=== PATIENT | male | born 1965 | race African-American/Black ===

== ENCOUNTER 2019-08-22 14:37 | Emergency (ER) | payer MEDICARE, MEDICAID ==
--- NOTE | 2019-08-22 15:17 | ER Document Report ---
ED Medical Screen (RME) - General Chief Complaint: General Weakness Stated Complaint: GENERAL WEAKNESS Time Seen by Provider: 08/22/19 15:09 Mode of Arrival: Medic Information source: Patient Notes: HPI; 54-year-old male presents to the emergency room via EMS complaining of generalized weakness for the past 4 days. States he is having frequent falls at home. Denies any injuries from the falls. Patient is a dialysis patient on peritoneal dialysis. PE: Alert and oriented x3. Mild distress noted. Lungs: Clear to auscultation without rales, rhonchi, wheezes. Heart: Regular rate rhythm without murmurs, rubs, gallops. I have greeted and performed a rapid initial assessment of this patient. A comprehensive ED assessment and evaluation of the patient, analysis of test results and completion of the medical decision making process will be conducted by additional ED providers. I have specifically instructed the patient or family members with the patient to immediately return to any nursing staff should anything change in the patient's condition or with their chief complaint. TRAVEL OUTSIDE OF THE [place] IN LAST 30 DAYS: No - Related Data Allergies/Adverse Reactions: No Known Allergies Allergy (Verified 08/22/19 15:05) Past Medical History - Past Medical History Cardiac Medical History: Reports: Hx Hypercholesterolemia, Hx Hypertension Endocrine Medical History: Reports: Hx Diabetes Mellitus Type 1, Hx Diabetes Mellitus Type 2 - Immunizations Hx Diphtheria, Pertussis, Tetanus Vaccination: Yes - <5 years Physical Exam - Vital signs Vitals: Temp Pulse Resp BP Pulse Ox 99.7 F 96 16 86/44 L 77 L 08/22/19 15:03 08/22/19 15:03 08/22/19 15:03 08/22/19 15:03 08/22/19 15:03 Course - Vital Signs Vital signs: Temp Pulse Resp BP Pulse Ox 99.7 F 96 16 86/44 L 77 L 08/22/19 15:03 08/22/19 15:03 08/22/19 15:03 08/22/19 15:03 08/22/19 15:03
[2019-08-22 16:19] LABS: ABSOLUTE BASOPHILS # (AUTO) 0.1 10^3/uL (0.0-0.2); ABSOLUTE EOSINOPHILS # (AUTO) 0.4 10^3/uL (0.0-0.6); ABSOLUTE NEUT (AUTO) 7.7 10^3/uL (1.7-8.2); BASOPHILS % (AUTO) 0.7 % (0-2); HEMATOCRIT 40.6 % (37.9-51.0); LYMPHOCYTES % (AUTO) 24.6 % (13-45); MEAN CORPUSCULAR HEMOGLOBIN 28.6 pg (27.0-33.4); MEAN CORPUSCULAR HGB CONC 32.1 g/dL (32.0-36.0); MEAN CORPUSCULAR VOLUME 89 fl (80-97); MONOCYTES % (AUTO) 8.2 % (3-13); PLATELET COUNT 361 10^3/uL (150-450); RED BLOOD COUNT 4.55 10^6/uL (4.35-5.55); SEGMENTED NEUTROPHILS % (AUTO) 63.5 % (42-78); TOTAL CELLS COUNTED % (AUTO) 100 %; WHITE BLOOD COUNT 12.1 10^3/uL (4.0-10.5)
[2019-08-22 16:42] LABS: ALBUMIN 4.4 g/dL (3.5-5.0); ALKALINE PHOSPHATASE 106 U/L (38-126); ASPARTATE AMINO TRANSFERASE 18 U/L (17-59); BILIRUBIN,DIRECT 0.6 mg/dL (0.0-0.4); BILIRUBIN,TOTAL 0.8 mg/dL (0.2-1.3); BLOOD UREA NITROGEN 87 mg/dL (7-20); CALCIUM 10.1 mg/dL (8.4-10.2); CREATINE KINASE 181 U/L (55-170); GLUCOSE 210 mg/dL (75-110); POTASSIUM 4.2 mmol/L (3.6-5.0); TOTAL PROTEIN 8.5 g/dL (6.3-8.2)
[2019-08-22 16:48] LABS: CARBON DIOXIDE 22 mmol/L (22-30); CHLORIDE 90 mmol/L (98-107)
[2019-08-22 16:53] LABS: CREATINE KINASE MB 2.34 ng/mL (<4.55); TROPONIN I 0.027 ng/mL
--- NOTE | 2019-08-22 17:06 | RADIOLOGY REPORT (SQ) ---
EXAM DESCRIPTION: CHEST 2 VIEWS IMAGES COMPLETED DATE/TIME: 08/22/2019 4:46 pm REASON FOR STUDY: weakness COMPARISON: PA and lateral views of the chest from 01/20/2014. EXAM PARAMETERS: NUMBER OF VIEWS: Two views. TECHNIQUE: PA and lateral views of the chest were obtained. RADIATION DOSE: NA LIMITATIONS: None. FINDINGS: LUNGS AND PLEURA: There is a crescent of air under the right hemidiaphragm. There is no c onsolidation, sizeable pleural effusion or pneumothorax. MEDIASTINUM AND HILAR STRUCTURES: No mediastinal or hilar contour abnormality. HEART AND VASCULAR STRUCTURES: The cardiac silhouette and pulmonary vasculature are within normal pascual its. BONES: No acute findings. HARDWARE: None in the chest. OTHER: No other finding. IMPRESSION: [place] of air under the right hemidiaphragm. Recommend correlation with supine and up right views of the abdomen to exclude pneumoperitoneum. COMMENT: This report was called to Emergency Department at16:59 on 08/22/2019. TECHNICAL DOCUMENTATION: JOB ID: [id number] 2010 [employer]- All Rights Reserved Reading location - IP/workstation name: [email or web address]
[2019-08-22 17:11] LABS: ANION GAP 26 (5-19)
--- NOTE | 2019-08-22 17:30 | RADIOLOGY REPORT (SQ) ---
EXAM DESCRIPTION: ABDOMEN 2 VIEWS IMAGES COMPLETED DATE/TIME: 08/22/2019 5:17 pm REASON FOR STUDY: pain COMPARISON: None. NUMBER OF VIEWS: Two views. TECHNIQUE: Supine and erect/decubitus radiographic images of the abdomen acquired. LIMITATIONS: None. FINDINGS: FREE AIR: None. No abnormal gas collections. LUNG BASES: Clear. BOWEL GAS PATTERN: Nonobstructive pattern. No dilated loops or air fluid levels. CALCIFICATIONS: Splenic artery calcifications are demonstrated. SOFT TISSUES: No gross mass or suggestion of organomegaly. HARDWARE: None in the abdomen. BONES: No acute fracture. No worrisome bone lesions. OTHER: No other significant finding. IMPRESSION: NO RADIOGRAPHIC EVIDENCE FOR ACUTE ABDOMINAL DISEASE. TECHNICAL DOCUMENTATION: JOB ID: [id number] 2010 [employer]- All Rights Reserved Reading location - IP/workstation name: [email or web address]
--- NOTE | 2019-08-22 17:30 | ER Document Report ---
ED General - General Chief Complaint: Weakness Stated Complaint: GENERAL WEAKNESS Time Seen by Provider: 08/22/19 15:09 Mode of Arrival: Medic Information source: Patient, Emergency Med Personnel, [facility] Records Notes: Patient is a 54-year-old male presenting to the emergency department for weakn ess. When asking the patient he is markedly confused he believes he is 57 when he is actually 54 patient does not answer questions directly however does not appear to be intentionally evasive. Patient apparently had told nursing staff that he is concerned about his peritoneal dialysis that he thinks that his numbers may be off. Patient also reportedly has stopped taking his medications for diabetes because he does not believe that he is diabetic. The remainder of history of present illness is unobtainable secondary to the patient's confusion and review of systems is somewhat questionable. TRAVEL OUTSIDE OF THE [place] IN LAST 30 DAYS: No - HPI Onset: Last week Onset/Duration: Gradual, Persistent Quality of pain: Achy Severity: Mild Pain Level: 1 Associated symptoms: None Exacerbated by: Denies Relieved by: Denies Similar symptoms previously: Yes Recently seen / treated by doctor: Yes - Related Data Allergies/Adverse Reactions: No Known Allergies Allergy (Verified 08/22/19 15:05) Past Medical History - General Information source: Patient - Social History Smoking Status: Never Smoker Chew tobacco use (# tins/day): No Frequency of alcohol use: None Drug Abuse: None Lives with: Family Family History: CAD, DM Patient has suicidal ideation: No Patient has homicidal ideation: No - Past Medical History Cardiac Medical History: Reports: Hx Hypercholesterolemia, Hx Hypertension Endocrine Medical History: Reports: Hx Diabetes Mellitus Type 1, Hx Diabetes Mellitus Type 2 - Immunizations Hx Diphtheria, Pertussis, Tetanus Vaccination: Yes - <5 years Hx Pneumococcal Vaccination: 04/14/12 Review of Systems - Review of Systems -: Yes ROS unobtainable due to patient's medical condition Constitutional: Weakness EENT: No symptoms reported Cardiovascular: No symptoms reported Respiratory: No symptoms reported Gastrointestinal: See HPI Genitourinary: No symptoms reported Male Genitourinary: No symptoms reported Musculoskeletal: No symptoms reported Skin: No symptoms reported Hematologic/Lymphatic: No symptoms reported Neurological/Psychological: No symptoms reported Physical Exam - Vital signs Vitals: Temp Pulse Resp BP Pulse Ox 99.7 F 96 16 86/44 L 77 L 08/22/19 15:03 08/22/19 15:03 08/22/19 15:03 08/22/19 15:03 08/22/19 15:03 - Notes Notes: PHYSICAL EXAMINATION: GENERAL: Well-appearing, well-nourished and in no acute distress. HEAD: Atraumatic, normocephalic. EYES: Right eye is opacified patient states he has cataracts to that eye there is some discharge to the eye, extraocular movements intact, sclera anicteric, conjunctiva are normal. ENT: nares patent, oropharynx clear without exudates. Tacky mucous membranes. NECK: Normal range of motion, supple without lymphadenopathy, no appreciable JVD LUNGS: Lungs clear to auscultation bilaterally and equal. No wheezes rales or rhonchi. HEART: Regular rate and rhythm without murmurs ABDOMEN: Soft, obese nontender, normal bowel sounds. No guarding, no rebound. No masses appreciated. EXTREMITIES: Active full range of motion, no pitting or edema. No cyanosis. 2+ pulses x4 NEUROLOGICAL: Patient demonstrates general confusion but otherwise does follow basic requests. SKIN: Warm, Dry, and intact. Normal turgor, no rashes or lesions noted. Course - Re-evaluation Re-evalutation: 08/23/19 00:15 Patient has been maintained on a [place] [employer] group leader while in emergency department. Patient has been reevaluated multiple times by myself and nursing staff. Eventually we were able to contact the patient's mother and spoke to her several times. She states that the patient has been acting differently over the past 2 to 3 days he has complained of less urination over the past several days. She states that the patient has been seen at [facility] in the past for dialysis related issues. 08/23/19 00:19 Radiologic studies demonstrate free air in the abdomen which may be secondary to the peritoneal dialysis and excessive free fluid likewise from the peritoneal dialysis the liver is enlarged and there is a small right lower lobe infiltrate. With the patient's confusion altered mental status and UTI feel most a ppropriate the patient should be transferred to a higher level facility. Patient was started on IV fluids and a gram of Rocephin. At 2340 I contacted the transfer center at [facility] and requested consultation with either nephrology or the hospitalist for possibility of transfer due to lack of dialysis capabilities at our facility over the weekend. Patient's lactic acid is 1 which is normal and his anion gap is 26 which is obviously elevated lipase of 665 blood glucose level of 210 BUN of 87 creatinine 31.7 last time the patient was seen here his BUN was 29 creatinine was 3.6 patient has been found to have a urinary tract infection on laboratory studies. 08/23/19 00:21 Currently waiting on return phone call from receiving facility. 08/23/19 00:52 I was able to speak with Dr. Chung, hospitalist at receiving facility who agrees with transfer at this time he is asking for broader coverage with antibiotics to include a gram of vancomycin and 3.375 g of Zosyn. No further requests were made and hospital transfer center will contact us when a bed is released. I did speak with the patient in this regard and he at this time seems somewhat more alert and is agreeable with transfer due to necessity. 08/23/19 01:08 I received a call back from the transfer center and there is [facility] which is also accepting patients I spoke with a Dr. Coco Perry who was very accommodating and states that they would be able to accept the patient in the transfer center believes bed availability would be much more expeditious to their facility. Patient is excepted and currently waiting on bed assignment and will be transferred to that facility by [facility]. 08/23/19 02:00 Just spoke with transfer center they say that there are no ambulances available until the morning patient be maintained in the emergency department and followed by nighttime physician until such time that the patient can have transportation secured. Patient is currently stable at this time. - Vital Signs Vital signs: Temp Pulse Resp BP Pulse Ox 99.7 F 96 16 130/81 H 94 08/22/19 15:03 08/22/19 15:03 08/22/19 15:03 08/22/19 21:55 08/23/19 01:00 - Laboratory Result Diagrams: 08/22/19 16:04 08/22/19 16:04 Laboratory results interpreted by me: 08/22/19 08/22/19 08/22/19 16:04 16:04 18:45 WBC 12.1 H Hgb 13.0 L Carbonic Acid ABG pH ABG pCO2 ABG pO2 ABG O2 Saturation Chloride 90 L Anion Gap 26 H BUN 87 H Creatinine 31.74 H Est GFR ( Amer) 2 L Est GFR (MDRD) Non-Af 1 L Glucose 210 H Hemoglobin A1c % Direct Bilirubin 0.6 H Ammonia < 8.7 L Creatine Kinase 181 H Total Protein 8.5 H Lipase Urine Protein Urine Glucose (UA) Urine Blood Ur Leukocyte Esterase 08/22/19 08/22/19 08/22/19 18:45 18:45 22:25 WBC Hgb Carbonic Acid ABG pH ABG pCO2 ABG pO2 ABG O2 Saturation Chloride Anion Gap BUN Creatinine Est GFR ( Amer) Est GFR (MDRD) Non-Af Glucose Hemoglobin A1c % 7.7 H Direct Bilirubin Ammonia Creatine Kinase Total Protein Lipase 665.1 H Urine Protein >=500 H Urine Glucose (UA) 50 H Urine Blood LARGE H Ur Leukocyte Esterase LARGE H 08/22/19 23:59 WBC Hgb Carbonic Acid 1.55 H ABG pH 7.28 L ABG pCO2 51.4 H ABG pO2 73.1 L ABG O2 Saturation 92.7 L Chloride Anion Gap BUN Creatinine Est GFR ( Amer) Est GFR (MDRD) Non-Af Glucose Hemoglobin A1c % Direct Bilirubin Ammonia Creatine Kinase Total Protein Lipase Urine Protein Urine Glucose (UA) Urine Blood Ur Leukocyte Esterase - Diagnostic Test Radiology reviewed: Image reviewed, Reports reviewed - EKG Interpretation by Me EKG shows normal: Sinus rhythm Rate: Normal Rhythm: NSR When compared to previous EKG there are: No significant change Critical Care Note - Critical Care Note Total time excluding time spent on procedures (mins): 60 Comments: Please allow 60 minutes of critical care time spent obtaining history from patient or surrogate, discussions with consultants, development of treatment plan with patient or surrogate, evaluation of patient's response to treatment, examination of patient. This also includes ordering and reviewing laboratory, EKG and / or radiologic studies, performing and reassessing treatments and interventions as well as reviewing previous visits and old charts. This is exclusive of separately billable procedures. Discharge - Discharge Clinical Impression: Noncompliance, Uremia Type I diabetes mellitus Qualifiers: Diabetes mellitus complication status: with other specified complication Qualified Code(s): E10.69 - Type 1 diabetes mellitus with other specified complication Hypotension Qualifiers: Hypotension type: unspecified hypotension type Qualified Code(s): I95.9 - Hypotension, unspecified UTI (urinary tract infection) Qualifiers: Urinary tract infection type: site unspecified Hematuria presence: without hematuria Qualified Code(s): N39.0 - Urinary tract infection, site not specified Dialysis complication Qualifiers: Encounter type: initial encounter Qualified Code(s): T82.9XXA - Unspecified complication of cardiac and vascular prosthetic device, implant and graft, initial encounter Condition: Fair Disposition: [facility]
--- NOTE | 2019-08-22 18:32 | RADIOLOGY REPORT (SQ) ---
EXAM DESCRIPTION: CT HEAD WITHOUT IMAGES COMPLETED DATE/TIME: 08/22/2019 6:20 pm REASON FOR STUDY: ams COMPARISON: 01/20/2014 TECHNIQUE: Axial images acquired through the brain without intravenous contrast. Images reviewed wi th bone, brain and subdural windows. Additional sagittal and coronal reconstructions were generated. Images stored on PACS. All CT scanners at this facility use dose modulation, iterative reconstruction, and/or weight based d osing when appropriate to reduce radiation dose to as low as reasonably achievable (ALARA). [facility]: Dose Right [facility]: CareDose [facility]: Dose Right [facility]: Teradose 4D [facility]: Smart [employer] RADIATION DOSE: CT Rad equipment meets quality standard of care and radiation dose reduction techniq ues were employed. CTDIvol: 53.2 mGy. DLP: 911 mGy-cm. mGy. LIMITATIONS: None. FINDINGS: VENTRICLES: Incidental note is made of normal variant persistent cavum septum pellucidum e t vergae configuration. CEREBRUM: No masses. No hemorrhage. No midline shift. No evidence for acute infarction. Normal gra y/white matter differentiation. No areas of low density in the white matter. CEREBELLUM: No masses. No hemorrhage. No alteration of density. No evidence for acute infarction. EXTRAAXIAL SPACES: No fluid collections. No masses. ORBITS AND GLOBE: No intra- or extraconal masses. Normal contour of globe without masses. CALVARIUM: No fracture. PARANASAL SINUSES: No fluid or mucosal thickening. SOFT TISSUES: No mass or hematoma. OTHER: No other significant finding. IMPRESSION: NORMAL BRAIN CT WITHOUT CONTRAST. EVIDENCE OF ACUTE STROKE: NO. COMMENT: Quality ID # 436: Final reports with documentation of one or more dose reduction techniques (e.g., Automated exposure control, adjustment of the mA and/or kV according to patient size, use of iterative reconstruction technique) TECHNICAL DOCUMENTATION: JOB ID: [id number] 2010 [employer]- All Rights Reserved Reading location - IP/workstation name: [email or web address]
--- NOTE | 2019-08-22 18:37 | EKG REPORT ---
SEVERITY:- OTHERWISE NORMAL ECG - SINUS RHYTHM MINIMAL ST ELEVATION, ANTERIOR LEADS : Confirmed by: Umang Avila MD 22-Aug-2019 18:36:42
[2019-08-22] MEDS ORDERED: NORMAL SALINE 1000 ML 1,000 ML IV ONE (21:46)
--- NOTE | 2019-08-22 22:38 | RADIOLOGY REPORT (SQ) ---
EXAM DESCRIPTION: CT ABDOMEN PELVIS WITHOUT IV CONTRAST COMPLETED DATE/TME: 08/22/2019 21:45 CLINICAL HISTORY: 54 years, Male, free air?? COMPARISON: None. TECHNIQUE: Noncontrast images of the abdomen and pelvis were obtained. Images stored on PACS. All CT scanners at this facility use dose modulation, iterative reconstruction, and/or weight based dosing when appropriate to reduce radiation dose to as low as reasonably achievable (ALARA). [facility]: Dose Right [facility]: CareDose [facility]: Dose Right [facility]: Teradose 4D [facility]: Smart [employer] LIMITATIONS: None. FINDINGS: There is minimal linear atelectasis or scarring within the left lung base. There is mild infiltration within the infrahilar right lower lobe centered around axial image 5, coronal image 50, and sagittal image 41. Incidental arterial calcifications are noted, also involving the coronary arteries. There is a moderate amount of free intraperitoneal air. There is a percutaneous catheter entering the anterior left lower quadrant and terminating in the anterior left pelvis, presumably a peritoneal dialysis catheter. There is a moderate amount of free fluid within the abdomen and pelvis. Liver is enlarged to 22 cm in length and is of normal in CT density. Spleen is normal in size. There are 2 small stones within the lower right renal pelvis/UPJ measuring up to 4 mm, producing mild dilation of the right renal pelvis. Additional nonobstructing renal calculi are also noted measuring 2 mm or less. Further, there are coexistent renal arterial vascular calcifications. There is no hydronephrosis on the left. There are bilateral renal hypodensities measuring up to 2.3 cm on the right and 1.5 cm on the left, likely representing cysts giving an internal Hounsfield densities of 7 and 1, respectively. There is no evidence of bowel obstruction. The appendix is within normal limits. Additional extensive arterial vascular calcifications are noted throughout the abdomen and pelvis as well. There is no abdominal aortic aneurysm. Bone windows reveal moderate degenerative disc disease changes at L4-L5. IMPRESSION: 1. Pneumoperitoneum. There is an apparent peritoneal dialysis catheter in place and free air could be secondary to recent peritoneal dialysis although correlation with the patient's history is recommended. Bowel perforation is not completely excluded. Likewise, moderate free fluid within the abdomen and pelvis could also be from peritoneal dialysis although the amount of fluid identified is greater than what is normally seen status post peritoneal dialysis. 2. Nonspecific hepatomegaly. 3. Mildly dilated right renal pelvis secondary to 2 stacked stones in the lower pelvis/UPJ measuring up to 4 mm. 4. mild right lower lobe infiltration. TECHNICAL DOCUMENTATION: Quality ID # 436: Final reports with documentation of one or more dose reduction techniques (e.g., Automated exposure control, adjustment of the mA and/or kV according to patient size, use of iterative reconstruction technique) copyright 2011 [facility]- All Rights Reserved
[2019-08-22 22:52] LABS: APPEARANCE,URINE CLOUDY; BILIRUBIN,URINE NEGATIVE (NEGATIVE); COLOR,URINE YELLOW; GLUCOSE, URINE 50 mg/dL (NEGATIVE)
[2019-08-22 22:53] LABS: ADD MANUAL MICROSCOPIC YES; KETONES,URINE NEGATIVE (NEGATIVE); LEUKOCYTE ESTERASE,URINE LARGE (NEGATIVE); NITRITE,URINE NEGATIVE (NEGATIVE); PROTEIN,URINE >=500 mg/dL (NEGATIVE); URINE SPECIFIC GRAVITY 1.023; UROBILINOGEN,URINE NEGATIVE mg/dL (<2.0)
[2019-08-22 22:55] LABS: BACTERIA,URINE 1+ /HPF; WBC,URINE 20-30 /HPF
[2019-08-22] MEDS ORDERED: CEFTRIAXONE 1 GM/D5W RTU 1 GM/50 ML RTUPB IV ONE (23:05)
[2019-08-23] MEDS ORDERED: PIPERACILLIN/TAZOBACTAM 3.375 GM VIAL IV ONE (00:50)
[2019-08-23] MEDS ORDERED: VANCOMYCIN HCL INJ 1000 MG VIAL IV ONE (00:51)
[2019-08-23 01:43] LABS: ARTERIAL BLOOD BASE EXCESS -3.5 mmol/L; ARTERIAL BLOOD H2CO3 1.55 mmol/L (1.05-1.35); ARTERIAL BLOOD HCO3 23.6 mmol/L (20-24); ARTERIAL BLOOD O2 SATURATION 92.7 % (94-98); ARTERIAL BLOOD PCO2 51.4 mmHg (35-45); ARTERIAL BLOOD PH 7.28 (7.35-7.45); ARTERIAL BLOOD PO2 73.1 mmHg (80-100); ARTERIAL BLOOD TOTAL CO2 25.2 mmol/L (23-27)
[2019-08-23 01:44] LABS: ARTERIAL BLOOD FIO2 ROOM AIR
[2019-08-23 04:16] VITALS: BP 112/74
--- NOTE | 2019-08-23 04:30 | ER Document Report ---
Doctor's Note Notes: 08/23/19 04:29 This MD notified by nursing that transport is here to take patient to [facility]. This MD went to the room and spoke to the patient about transfer. Patient is awake and alert and appears to be in no acute distress. Patient appears to be stable for transfer. This MD signed the EMTALA form signed Dr. Mosley' signature.
== END 2019-08-23 04:37 | disposition short-term general hospital (02) ==
LOC: ER 14:37
DX: Z03.818 Encounter for observation for suspected exposure to other biological agents ruled out (principal); N39.0 Urinary tract infection, site not specified; E11.9 Type 2 diabetes mellitus without complications; T50.906A Underdosing of unspecified drugs, medicaments and biological substances, initial encounter; Z91.128 Patient's intentional underdosing of medication regimen for other reason; Z91.14 Patient's other noncompliance with medication regimen; Z99.2 Dependence on renal dialysis; N19 Unspecified kidney failure; R41.0 Disorientation, unspecified; R16.0 Hepatomegaly, not elsewhere classified; R91.8 Other nonspecific abnormal finding of lung field; N20.1 Calculus of ureter; R29.6 Repeated falls
CPT/HCPCS: 93005; 99291; 96361; 96365; 96366; 96367; 96368; 36415; 87040; 82553; 82010; 80307; 82140; 82803; 82550; 83605; 83690; 85025; 80053; 81001; 84484; 83036; 74019; 71046; 70450; 74176; 93010; U0003; J7030; J3370; J0696; J2543; C9803; 87635

== ENCOUNTER 2019-09-10 15:44 | Emergency (ER) | payer MEDICARE, MEDICAID ==
[2019-09-10] MEDS ORDERED: NORMAL SALINE 500 ML IV ONE (16:50)
[2019-09-10] MEDS ORDERED: CEFTRIAXONE INJ 1000 MG VIAL IV ONE (16:53)
[2019-09-10] MEDS ORDERED: AZITHROMYCIN INJ 500 MG VIAL IV ONE ×2 (16:54→19:30)
--- NOTE | 2019-09-10 16:54 | ER Document Report ---
ED General - General Chief Complaint: General Weakness Stated Complaint: WEAKNESS Time Seen by Provider: 09/10/19 16:47 Mode of Arrival: Ambulatory Information source: Patient Notes: 09/10/19 15:45 (created 09/10/19 15:59) - ED Nursing Note by SONALI HUGO Num: [id number] : 1965 Patient Age: 54 Pt to ED via EMS stretcher. Pt stands and moves to bed with use of cane. Pt c/o weakness/nausea x3 days. Pt reports a productive cough with "greyish" phlegm. Pt in NAD. Pt was at [facility] for peritonitis approximately 1-2 weeks ago. Currently a peritoneal home dialysis pt. Pt states he was unable to complete full dialysis treatment last night due to nausea. EMS admin Zofran 4 mg ODT. EMS states lactate is 0.9 with a BGL of 243. Pt denies pain/SOB. VS obtained. Will CTM. my notes 54-year-old black male arrives with chief complaint of having weakness for 3 days with esparza productive cough as well. Patient reports he has had pneumonia many years ago. He denies any hemoptysis but does admit to fevers and chills. Also patient denies any trauma. He denies any abdominal pain back pain extremity pain skin lesions insect bites tick bites animal bites human bites coronavirus exposure but was here in the hospital around 2 weeks ago for perito nitis. TRAVEL OUTSIDE OF THE [place] IN LAST 30 DAYS: No - HPI Onset: This morning - Related Data Allergies/Adverse Reactions: No Known Allergies Allergy (Verified 09/10/19 16:05) Home Medications: Carvedilol, Potassium Chloride, Lisinopril, Bumetanide, Renaplex, Meclizine, Levothyroxine Past Medical History - Social History Smoking Status: Never Smoker Frequency of alcohol use: None Drug Abuse: None Family History: CAD, DM - Past Medical History Cardiac Medical History: Reports: Hx Hypercholesterolemia, Hx Hypertension Endocrine Medical History: Reports: Hx Diabetes Mellitus Type 1, Hx Diabetes Mellitus Type 2 - Immunizations Hx Diphtheria, Pertussis, Tetanus Vaccination: Yes - <5 years Hx Pneumococcal Vaccination: 04/14/12 Physical Exam - Vital signs Vitals: Temp 99 F 09/10/19 15:44 Course - Vital Signs Vital signs: Temp Pulse Resp BP Pulse Ox 99 F 99 20 99/55 L 100 09/10/19 15:55 09/10/19 15:55 09/10/19 15:55 09/10/19 15:55 09/10/19 15:55 - Laboratory Result Diagrams: 09/10/19 17:20 Laboratory results interpreted by me: 09/10/19 17:20 Hgb 12.6 L Discharge - Discharge Clinical Impression: URI (upper respiratory infection) Qualifiers: URI type: unspecified URI Qualified Code(s): J06.9 - Acute upper respiratory infection, unspecified Condition: Good Disposition: HOME, SELF-CARE Additional Instructions: follow with personal doctor and return to ER as needed; dispense as directed encourage fluids Prescriptions: Benzonatate [Tessalon Perles 100 mg Capsule] 100 mg PO BID #20 capsule Azithromycin [Zithromax 250 mg Tablet] 250 mg PO ASDIR PRN #6 tablet PRN Reason:
[2019-09-10 17:52] LABS: ABSOLUTE EOSINOPHILS # (AUTO) 0.3 10^3/uL (0.0-0.6); ABSOLUTE LYMPHOCYTES (AUTO) 1.7 10^3/uL (0.5-4.7); ABSOLUTE MONOCYTES (AUTO) 0.7 10^3/uL (0.1-1.4); ABSOLUTE NEUT (AUTO) 5.8 10^3/uL (1.7-8.2); BASOPHILS % (AUTO) 0.4 % (0-2); EOSINOPHILS % (AUTO) 3.3 % (0-6); HEMATOCRIT 38.8 % (37.9-51.0); HEMOGLOBIN 12.6 g/dL (13.5-17.0); LYMPHOCYTES % (AUTO) 20.3 % (13-45); MEAN CORPUSCULAR HEMOGLOBIN 28.3 pg (27.0-33.4); MEAN CORPUSCULAR HGB CONC 32.4 g/dL (32.0-36.0); MEAN CORPUSCULAR VOLUME 87 fl (80-97); MONOCYTES % (AUTO) 7.9 % (3-13); PLATELET COUNT 293 10^3/uL (150-450); RED BLOOD COUNT 4.44 10^6/uL (4.35-5.55); RED CELL DISTRIBUTION WIDTH 13.7 % (11.5-14.0); SEGMENTED NEUTROPHILS % (AUTO) 68.1 % (42-78); TOTAL CELLS COUNTED % (AUTO) 100 %; WHITE BLOOD COUNT 8.5 10^3/uL (4.0-10.5)
--- NOTE | 2019-09-10 19:13 | RADIOLOGY REPORT (SQ) ---
EXAM DESCRIPTION: CHEST SINGLE VIEW IMAGES COMPLETED DATE/TIME: 09/10/2019 6:57 pm REASON FOR STUDY: cough COMPARISON: 08/22/2019 NUMBER OF VIEWS: One view. TECHNIQUE: Single frontal radiographic view of the chest acquired. LIMITATIONS: None. FINDINGS: LUNGS AND PLEURA: No opacities, masses or pneumothorax. No pleural effusion. MEDIASTINUM AND HILAR STRUCTURES: No masses. Contour normal. HEART AND VASCULAR STRUCTURES: Heart normal in size. Normal vasculature. BONES: No acute findings. HARDWARE: None in the chest. OTHER: No other significant finding. IMPRESSION: NO SIGNIFICANT RADIOGRAPHIC FINDING IN THE CHEST. TECHNICAL DOCUMENTATION: JOB ID: [id number] 2010 [employer]- All Rights Reserved Reading location - IP/workstation name: [email or web address]
--- NOTE | 2019-09-10 20:07 | EKG REPORT ---
SEVERITY:- OTHERWISE NORMAL ECG - SINUS RHYTHM MINIMAL ST ELEVATION, ANTERIOR LEADS : Confirmed by: Gertrude Brown MD 10-Sep-2019 20:06:26
[2019-09-10 20:55] VITALS: BP 141/79
== END 2019-09-10 20:35 | disposition home or self-care (01) ==
LOC: ER 15:44
DX: J06.9 Acute upper respiratory infection, unspecified (principal); R53.1 Weakness; R11.0 Nausea; Z20.828 Contact with and (suspected) exposure to other viral communicable diseases; E78.00 Pure hypercholesterolemia, unspecified; I10 Essential (primary) hypertension; E11.9 Type 2 diabetes mellitus without complications; Z99.2 Dependence on renal dialysis
CPT/HCPCS: 93005; 99284; 96365; 96367; 36415; 87040; 85025; 71045; 93010; U0003; J0696; J7040; J0456; C9803; 87635